=== PATIENT | male | born 1985 | race Caucasian/White ===

== ENCOUNTER 2023-10-22 19:54 | Emergency (ER) | payer MEDICARE, MEDICAID ==
[~2023-10-22] VITALS: Ht 172.7 cm; Wt 70.0 kg
[~2023-10-22 19:54] MED LIST: ATI1T PO; LURA120T PO; OLAN10TA73 PO; OXCA600T9 PO; PANT40TA54 PO
[2023-10-22 19:59] VITALS: BP 110/78; PULSE 73; RESP 16; TEMP 98.2; O2SAT 97
[2023-10-22] MEDS ORDERED: OLANZapine 2.5MG tablet PO SCH (20:35)
[2023-10-22] MEDS: OLANZapine 2.5MG tablet PO ONE (20:45)
[2023-10-22] MEDS: LORazepam 1 MG tablet PO ONE (20:46)
[2023-10-22] MEDS ORDERED: LORA2TAB96 PO (20:52)
== END 2023-10-22 21:04 | disposition home or self-care (01) ==
LOC: ER 19:55
DX: F41.9 Anxiety disorder, unspecified (principal); F31.9 Bipolar disorder, unspecified; Z79.899 Other long term (current) drug therapy
CPT/HCPCS: 99283

== ENCOUNTER 2023-11-26 16:44 | Emergency (ER) | payer MEDICARE, MEDICAID ==
[~2023-11-26] VITALS: Ht 172.7 cm; Wt 68.0 kg
[~2023-11-26 16:44] MED LIST changes: +LORA2TAB96 PO; +LORA2VIA30 IJ
[2023-11-26 16:55] VITALS: TEMP 98.9
[2023-11-26 17:31] LABS: BASOPHILS # (AUTO) 0.1 X10'3 (0-0.2); BASOPHILS % (AUTO) 0.9 % (0-1); EOSINOPHILS # (AUTO) 0.1 X10'3 (0-0.9); EOSINOPHILS % (AUTO) 0.7 % (0-6); HEMATOCRIT 44.4 % (42.0-52.0); HEMOGLOBIN 15.3 g/dl (14.0-17.9); LYMPHOCYTES # (AUTO) 2.2 X10'3 (1.1-4.8); LYMPHOCYTES % (AUTO) 19.8 % (21-51); MEAN CORPUSCULAR HEMOGLOBIN 32.1 PG (27.0-31.0); MEAN CORPUSCULAR HGB CONC 34.5 g/dL (33.0-36.5); MEAN CORPUSCULAR VOLUME 93.2 FL (78-98); MEAN PLATELET VOLUME 7.3 FL (7.4-10.4); MONOCYTES # (AUTO) 0.8 X10'3 (0-0.9); MONOCYTES % (AUTO) 7.4 % (2-12); NEUTROPHILS % (AUTO) 71.2 % (42-75); PLATELET COUNT 285 X10'3 (140-440); RED BLOOD COUNT 4.76 X10'6 (4.70-6.10); RED CELL DISTRIBUTION WIDTH 13.9 % (11.5-14.5); WHITE BLOOD COUNT 11.2 X10'3 (4.5-11.0)
[2023-11-26 17:44] LABS: ALBUMIN 4.2 G/DL (3.4-5.0); ANION GAP 8 (8-16); BLOOD UREA NITROGEN 6 MG/DL (7-18); BUN/CREATININE RATIO 7.2 (10.0-20.0); CALCIUM 8.8 MG/DL (8.5-10.1); CHLORIDE 103 MMOL/L (99-107); CREATININE 0.83 MG/DL (0.60-1.10); ETHANOL < 10 MG/DL (<10); GLUCOSE 126 MG/DL (70-104); POTASSIUM 3.7 MMOL/L (3.5-5.1); SODIUM 139 MMOL/L (135-145); TOTAL CARBON DIOXIDE 28.5 MMOL/L (24-32); eCRCL 118 ML/MIN; eGFR > 90 ML/MIN
[2023-11-26 17:45] LABS: ACETAMINOPHEN < 2.0 UG/ML (10-30)
[2023-11-26] MEDS ORDERED: PROP40TA72 PO (19:40)
[2023-11-26] MEDS ORDERED: LURA120T2 PO (19:40)
[2023-11-26] MEDS ORDERED: INDLA80C PO (19:40)
[2023-11-26 19:51] LABS: LIPASE 34 U/L (16-77)
[2023-11-26 20:25] LABS: BILIRUBIN,URINE NEGATIVE (Neg); CLARITY,URINE CLEAR (Clear); COLOR,URINE YELLOW (Yellow); GLUCOSE, URINE NEGATIVE (Neg); KETONES,URINE NEGATIVE (Neg); LEUKOCYTE ESTERASE ,URINE NEGATIVE (Neg); NITRITES, URINE NEGATIVE (Neg); OCCULT BLOOD,URINE TRACE-INTACT (Neg); PH,URINE 6.5 (4.8-8.0); PROTEIN,URINE NEGATIVE (Neg); UROBILINOGEN,URINE 0.2 E.U/dL (0.2-1.0)
[2023-11-26 20:33] LABS: UA COLLECTION TYPE NON-SPECIFIED
[2023-11-26 20:34] LABS: BACTERIA,URINE FEW /HPF (Neg); WBC,URINE 0-4 /HPF (0-4)
[2023-11-26 20:35] LABS: MUCUS STRANDS FEW /LPF (Neg); SQUAMOUS EPITHELIAL CELL,UR FEW /LPF (FEW)
[2023-11-26 20:36] LABS: URINE AMPHETAMINE SCREEN NEGATIVE (Neg); URINE BARBITUATE SCREEN NEGATIVE (Neg); URINE BENZODIAZEPINES SCREEN NEGATIVE (Neg); URINE CANNABINOID SCREEN NEGATIVE (Neg); URINE COCAINE SCREEN NEGATIVE (Neg); URINE METHADONE SCREEN NEGATIVE (Neg); URINE OPIATE SCREEN NEGATIVE (Neg); URINE PHENCYCLIDINE SCREEN NEGATIVE (Neg)
[2023-11-26] MEDS: nicotine 21mg patch - 24 hr TD ONE (21:07)
[2023-11-26] MEDS: propranolol 40mg tablet PO SCH (21:16)
[2023-11-26 21:40] VITALS: BP 120/81; PULSE 65; O2SAT 97
[2023-11-26] MEDS: lurasidone 60mg tablet PO SCH (22:58)
[2023-11-27] MEDS: diphenhydrAMINE 25mg capsule PO ONE (03:07)
[2023-11-27 10:00] VITALS: RESP 16
== END 2023-11-27 12:34 | disposition home or self-care (01) ==
LOC: ER 16:45
DX: R45.851 Suicidal ideations (principal); R10.9 Unspecified abdominal pain; G89.29 Other chronic pain; Z20.822 Contact with and (suspected) exposure to COVID-19
CPT/HCPCS: 0099U; 36415; 74176; 80048; 80305; 80320; 80329; 81001; 83690; 85025; 87811; 99284; Q0163

== ENCOUNTER 2023-11-28 14:59 | Emergency (ER) | payer MEDICARE, MEDICAID ==
[~2023-11-28] VITALS: Ht 172.7 cm; Wt 71.8 kg
[~2023-11-28 14:59] MED LIST changes: -ATI1T PO; -LORA2TAB96 PO; -LORA2VIA30 IJ; -LURA120T PO; +LURA120T2 PO; -OLAN10TA73 PO; -OXCA600T9 PO; -PANT40TA54 PO; +PROP40TA72 PO
[2023-11-28 16:40] LABS: BASOPHILS # (AUTO) 0.1 X10'3 (0-0.2); BASOPHILS % (AUTO) 0.5 % (0-1); EOSINOPHILS # (AUTO) 0.1 X10'3 (0-0.9); EOSINOPHILS % (AUTO) 0.6 % (0-6); HEMATOCRIT 40.6 % (42.0-52.0); LYMPHOCYTES # (AUTO) 2.2 X10'3 (1.1-4.8); LYMPHOCYTES % (AUTO) 19.8 % (21-51); MEAN CORPUSCULAR HEMOGLOBIN 32.6 PG (27.0-31.0); MEAN CORPUSCULAR HGB CONC 34.6 g/dL (33.0-36.5); MEAN CORPUSCULAR VOLUME 94.2 FL (78-98); MEAN PLATELET VOLUME 7.6 FL (7.4-10.4); MONOCYTES # (AUTO) 1.3 X10'3 (0-0.9); MONOCYTES % (AUTO) 11.1 % (2-12); NEUTROPHILS # (AUTO) 7.7 X10'3 (1.8-7.7); PLATELET COUNT 306 X10'3 (140-440); RED BLOOD COUNT 4.31 X10'6 (4.70-6.10); RED CELL DISTRIBUTION WIDTH 13.7 % (11.5-14.5); WHITE BLOOD COUNT 11.3 X10'3 (4.5-11.0)
[2023-11-28 16:53] LABS: ACETAMINOPHEN < 2.0 UG/ML (10-30); ALBUMIN 4.1 G/DL (3.4-5.0); ANION GAP 13 (8-16); BLOOD UREA NITROGEN 8 MG/DL (7-18); BUN/CREATININE RATIO 11.4 (10.0-20.0); CALCIUM 8.9 MG/DL (8.5-10.1); CHLORIDE 100 MMOL/L (99-107); ETHANOL < 10 MG/DL (<10); GLUCOSE 107 MG/DL (70-104); POTASSIUM 3.7 MMOL/L (3.5-5.1); SALICYLATE 5.8 MG/DL (4.0-20.0); SODIUM 136 MMOL/L (135-145); TOTAL CARBON DIOXIDE 23.4 MMOL/L (24-32); eCRCL 141 ML/MIN; eGFR > 90 ML/MIN
[2023-11-28] MEDS: LORazepam 1 MG tablet PO ONE (23:39)
[2023-11-29] MEDS ORDERED: NICO-630 TD (00:40)
[2023-11-29 01:02] LABS: URINE AMPHETAMINE SCREEN NEGATIVE (Neg); URINE BARBITUATE SCREEN NEGATIVE (Neg); URINE BENZODIAZEPINES SCREEN NEGATIVE (Neg); URINE CANNABINOID SCREEN NEGATIVE (Neg); URINE COCAINE SCREEN NEGATIVE (Neg); URINE METHADONE SCREEN NEGATIVE (Neg); URINE OPIATE SCREEN NEGATIVE (Neg); URINE PHENCYCLIDINE SCREEN NEGATIVE (Neg)
[2023-11-29 02:00] LABS: BILIRUBIN,URINE NEGATIVE (Neg); CLARITY,URINE CLEAR (Clear); COLOR,URINE STRAW (Yellow); GLUCOSE, URINE NEGATIVE (Neg); KETONES,URINE NEGATIVE (Neg); LEUKOCYTE ESTERASE ,URINE NEGATIVE (Neg); NITRITES, URINE NEGATIVE (Neg); OCCULT BLOOD,URINE NEGATIVE (Neg); PH,URINE 7.5 (4.8-8.0); PROTEIN,URINE NEGATIVE (Neg); UROBILINOGEN,URINE 0.2 E.U/dL (0.2-1.0)
[2023-11-29 02:02] LABS: UA COLLECTION TYPE CLN CATCH MIDSTREAM
[2023-11-29] MEDS: propranolol 40mg tablet PO SCH (07:43)
[2023-11-29] MEDS: nicotine 7mg patch - 24hr TD SCH (07:43)
[2023-11-29] MEDS: LORazepam 1 MG tablet PO ONE (13:05)
[2023-11-29] MEDS: lurasidone 60mg tablet PO SCH (17:07)
[2023-11-29 20:07] VITALS: BP 135/75; PULSE 88; RESP 16; TEMP 97.8; O2SAT 100
== END 2023-11-29 20:10 ==
LOC: ER 14:59
DX: R45.851 Suicidal ideations (principal); Z20.822 Contact with and (suspected) exposure to COVID-19; F31.9 Bipolar disorder, unspecified
CPT/HCPCS: 36415; 80048; 80305; 80320; 80329; 81003; 85025; 87811; 99285